=== PATIENT | female | born 1995 | race Caucasian/White ===

== ENCOUNTER 2017-07-30 02:43 | Observation (INO) | payer OTHER ==
[~2017-07-30] VITALS: Ht 157.5 cm; Wt 86.2 kg
[~2017-07-30 02:43] MED LIST: ALBUTEROL SULF8.5 GM IH; IBUPROFEN600 MG PO; KEFLEX500 MG PO; LABETALOL HCL200 MG PO; PRENATAL TABLE1 EAC3 PO; SINGULAIR10 MG PO; TYLENOL REGULA325 MG PO
[2017-07-30 04:02] LABS: HEMATOCRIT 38.6 % (36.0-46.0); HEMOGLOBIN 13.2 G/DL (11.9-15.5); MCH 31.8 PG (29.0-34.0); MCHC 34.2 G/DL (30.0-36.0); PLATELET COUNT 306 K/uL (156-360); RBC DIS.WIDTH-SD 41.5 % (39-53); RED BLOOD COUNT 4.15 M/uL (3.80-5.20); WHITE BLOOD COUNT 11.3 K/uL (4.1-10.2)
[2017-07-30 04:10] LABS: CHLORIDE 106 mEq/L (99-109); POTASSIUM 3.7 mEq/L (3.7-5.4); SODIUM 139 mEq/L (136-147)
[2017-07-30 04:12] LABS: GLUCOSE 120 mg/dL (70-99)
[2017-07-30 04:16] LABS: CREATININE 0.9 mg/dL (0.6-1.3); GFR ESTIMATE (CALCULATED) > 59 mL/min/
[2017-07-30 04:17] LABS: UREA NITROGEN (BUN) 13 mg/dL (9-23)
[2017-07-30 04:24] LABS: QUANTITATIVE HCG < 4.0 MIU/ML
[2017-07-30] MEDS ORDERED: VENTOLIN HFA18 GM IH (08:49)
[2017-07-30 11:48] VITALS: BP 131/79
[2017-07-30 15:35] VITALS: BP 124/72
[2017-07-30 20:04] VITALS: BP 122/71
[2017-07-30 23:48] VITALS: BP 117/74
[2017-07-31 03:59] VITALS: BP 128/67
[2017-07-31 07:00] VITALS: BP 126/68
[2017-07-31 11:51] VITALS: BP 120/68
[2017-07-31 20:25] VITALS: BP 116/57
[2017-07-31 23:37] VITALS: BP 125/69
[2017-08-01 03:55] VITALS: BP 121/77
[2017-08-01 09:45] VITALS: BP 143/71
[2017-08-01] MEDS ORDERED: DULERA 200 MCG/13 GM IH (10:35)
[2017-08-01] MEDS ORDERED: PREDNISONE10 M1 PO (10:36)
[2017-08-01] MEDS ORDERED: TRAMADOL HCL50 MG PO (10:37)
[2017-08-01] MEDS ORDERED: Robitussin DM PO (10:37)
[2017-08-01] MEDS ORDERED: AUGMENTIN875 MG PO (10:37)
== END 2017-08-01 11:50 | disposition home or self-care (01) ==
LOC: EME 02:43 → EDOF 04:37 → ENRESERV 04:40 → 5WEST 11:31 → ENPENDDIS 08-01 → 5WEST 08-01 11:50
PROVIDERS: Emergency Medicine
DX: J45.901 Unspecified asthma with (acute) exacerbation (principal); J20.9 Acute bronchitis, unspecified; R07.89 Other chest pain; F17.200 Nicotine dependence, unspecified, uncomplicated; Z91.030 Bee allergy status
CPT/HCPCS: 71045; 71046; 80048; 84702; 85027; 94640; 94640 76; 94644; 94668; 99202; 99281; 99285; G0378; J0696; J1885; J2930; J3475; J7030; J7512

== ENCOUNTER 2017-10-03 09:49 | Emergency (ER) | payer OTHER ==
[~2017-10-03] VITALS: Ht 160 cm; Wt 86.2 kg
[~2017-10-03 09:49] MED LIST changes: +AUGMENTIN875 MG PO; +DULERA 200 MCG/13 GM IH; +PREDNISONE10 M1 PO; +Robitussin DM PO; +TRAMADOL HCL50 MG PO; +VENTOLIN HFA18 GM IH
[2017-10-03] MEDS ORDERED: PREDNISONE20 MG PO (10:08)
[2017-10-03 12:11] VITALS: BP 120/74
== END 2017-10-03 12:16 | disposition home or self-care (01) ==
LOC: EME 09:49
DX: J45.901 Unspecified asthma with (acute) exacerbation (principal); R06.03 Acute respiratory distress; K21.9 Gastro-esophageal reflux disease without esophagitis; F32.9 Major depressive disorder, single episode, unspecified; F41.9 Anxiety disorder, unspecified; Z72.0 Tobacco use
CPT/HCPCS: 94640; 99202; 99281; 99284; J7512